=== PATIENT | male | born 1975 ===

== ENCOUNTER 2018-07-21 15:39 | Emergency (ER) | payer OTHER ==
[2018-07-21 16:19] VITALS: BMI 25.8
[2018-07-21 16:20] VITALS: BP 154/88; PULSE 82; RESP 16; TEMP 98.5; O2SAT 98
== END 2018-07-21 16:38 | disposition left against medical advice (07) ==
LOC: H.ER 15:39
DX: Z02.89 Encounter for other administrative examinations (principal)

== ENCOUNTER 2018-08-29 09:10 | Emergency (ER) | payer OTHER ==
[2018-08-29 09:11] VITALS: BMI 47.4
[2018-08-29 09:14] VITALS: RESP 18
--- NOTE | 2018-08-29 09:55 | ED PDOC ---
HPI: Psych/Substance Abuse Time Seen by Provider: 08/29/18 09:22 Chief Complaint (Nursing): Psychiatric Evaluation Chief Complaint (Provider): Psychiatric Evaluation History Per: Patient, EMS, [facility] Out (the [employer] [place]) History/Exam Limitations: no limitations Associated Symptoms: Other (Hallucination). denies: Suicidal Thoughts Additional Complaint(s): 42 years old male with a history of bipolar disorder and schizophrenia brought in by [facility] after he was found sitting near a [employer]. Patient reports hearing voices that tell him to kill people. He states he is hearing the devil now telling him to kill people but he does not want to hurt anyone. Patient denies wanting to hurt himself, any pain, shortness of breath, nausea, vomiting or other discomfort. PMD: No provider Past Medical History Reviewed: Historical Data, Nursing Documentation, Vital Signs Vital Signs: Last Vital Signs Temp 98.1 F 08/29/18 09:13 Pulse 72 08/29/18 09:13 Resp 18 08/29/18 09:13 BP 132/57 L 08/29/18 09:13 Pulse Ox 99 08/29/18 09:13 - Medical History PMH: Bipolar Disorder, Schizophrenia Denies: Diabetes, Hepatitis, HIV, HTN, Seizures, Sexually Transmitted Disease - Surgical History Surgical History: No Surg Hx - Family History Family History: States: Unknown Family Hx - Home Medications Home Medications: Ambulatory Orders Medication Instructions Recorded RX: Benztropine [Cogentin] 1 mg PO HS 30 Days #30 tab 08/19/18 RX: Divalproex [Depakote ER(ONCE 2,000 mg PO HS 30 Days #120 ter 08/19/18 DAILY)] RX: Risperidone [Risperdal M-TAB] 3 mg PO HS 30 Days #90 odt 08/19/18 RX: risperiDONE [RisperDAL Tab] 3 mg PO DAILY 30 Days #30 tab 08/19/18 RX: traZODone [Desyrel] 300 mg PO HS 30 Days #90 tab 08/19/18 - Allergies Allergies/Adverse Reactions: Allergies Allergy/AdvReac Type Severity Reaction Status Date / Time No Known Allergies Allergy Verified 07/27/18 03:13 Review of Systems ROS Statement: Except As Marked, All Systems Reviewed And Found Negative Respiratory: Negative for: Shortness of Breath Gastrointestinal: Negative for: Nausea, Vomiting Psych: Positive for: Other (Auditory hallucinations). Negative for: Suicidal ideation Physical Exam - Reviewed Nursing Documentation Reviewed: Yes Vital Signs Reviewed: Yes - Physical Exam Appears: Positive for: Well, No Acute Distress Head Exam: Positive for: ATRAUMATIC, NORMOCEPHALIC Skin: Positive for: Normal Color, Warm, Dry Eye Exam: Positive for: Normal appearance, EOMI, PERRL Neck: Positive for: Normal, Painless ROM, Supple Cardiovascular/Chest: Positive for: Regular Rate, Rhythm. Negative for: Murmur Respiratory: Positive for: Normal Breath Sounds. Negative for: Respiratory Distress Gastrointestinal/Abdominal: Positive for: Normal Exam, Soft. Negative for: Tenderness Back: Positive for: Normal Inspection. Negative for: L CVA Tenderness, R CVA Tenderness Extremity: Positive for: Normal ROM. Negative for: Pedal Edema, Swelling Neurologic/Psych: Positive for: Alert, Oriented (x3) - ECG O2 Sat by Pulse Oximetry: 99 (RA) Pulse Ox Interpretation: Normal Medical Decision Making Medical Decision Making: Time: 922 MDM: Crisis evaluation due to auditory hallucinations --Will do labs and further medical workup if patient need psychiatric admission 1222 Evaluated by psychiatry, patient cleared for discharge for psychiatrist Reymundo with schizoaffective disorder. Scribe Attestation: Documented by Eliza Adams, acting as a scribe for Veena Stone MD. Provider Scribe Attestation: All medical record entries made by the Scribe were at my direction and pers onally dictated by me. I have reviewed the chart and agree that the record accurately reflects my personal performance of the history, physical exam, medical decision making, and the department course for this patient. I have also personally directed, reviewed, and agree with the discharge instructions and disposition. Disposition - Clinical Impression Clinical Impression: Schizoaffective disorder - Patient ED Disposition Is Patient to be Admitted: No - Disposition Disposition: Routine/Home Disposition Time: 12:22 Condition: STABLE Additional Instructions: FOR PRISON SERVICES: [address] [phone] FOR MEDICAL AND MENTAL HEALTH SERVICES: [facility] [address] [place] [address] Instructions: Schizoaffective Disorder (DC) Forms: [employer] (Mongolian) Print Language: [email or web address]
[2018-08-29 12:32] VITALS: BP 132/77; PULSE 64; TEMP 98
[2018-08-31 08:25] VITALS: O2SAT 99
== END 2018-08-29 12:30 | disposition home or self-care (01) ==
LOC: H.ER 09:10
DX: F25.9 Schizoaffective disorder, unspecified (principal); F31.9 Bipolar disorder, unspecified; Z79.899 Other long term (current) drug therapy